=== PATIENT | male | born 2000 | race Caucasian/White ===

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

== ENCOUNTER 2022-01-24 10:32 | Emergency (ER) | payer OTHER, SELFPAY ==
[~2022-01-24] VITALS: Ht 177.8 cm; Wt 84.1 kg
[2022-01-24] MEDS ORDERED: IBUPROFEN 800 MG TAB PO ONE (13:35)
[2022-01-24] MEDS ORDERED: ACETAMINOPHEN 500 MG TAB PO ONE (13:35)
[2022-01-24] MEDS ORDERED: ACET-897 PO (13:38)
[2022-01-24] MEDS ORDERED: IBUP-359 PO (13:38)
[2022-01-24] MEDS ORDERED: NS 1,000 ML IV ONE (14:50)
[2022-01-24 16:52] VITALS: BP 114/59
== END 2022-01-24 17:16 | disposition home or self-care (01) ==
LOC: M ED 10:32
DX: U07.1 COVID-19 (principal); I95.9 Hypotension, unspecified